=== PATIENT | female | born 1965 | race Caucasian/White ===

== ENCOUNTER 2016-06-21 17:54 | Emergency (ER) | payer BC ==
[~2016-06-21] VITALS: Ht 154.9 cm; Wt 118.3 kg
[2016-06-21 18:29] VITALS: BP 147/86; PULSE 109; TEMP 36.9; O2SAT 97; Ht 154.9 cm; Wt 118.3 kg
[2016-06-21 19:31] LABS: BASO % 0.2 %; BASO ABS # 0.02 K/uL (0-0.2); COMPLETE YES; EOS % 1.3 %; HEMATOCRIT 45.9 % (37-47); IG% 0.2 %; LYMPH % 23.7 %; LYMPH ABS # 2.06 K/uL (1.2-3.4); MEAN CELL VOLUME 92.7 fL (80-100); MEAN CORPUSCULAR HEMOGLOBIN 32.1 pg (25-34); MEAN CORPUSCULAR HGB CONC 34.6 g/dl (32-36); MONO % 8.4 %; NEUT % 66.2 %; PLATELET COUNT 347 K/uL (130-400); RED BLOOD COUNT 4.95 M/uL (4.2-5.4); WHITE BLOOD COUNT 8.69 K/uL (4.8-10.8)
[2016-06-21] MEDS ORDERED: GLC/500 PO (19:32)
[2016-06-21] MEDS ORDERED: LISI-787 PO (19:32)
[2016-06-21 19:49] LABS: BUN/CREATININE RATIO 18.7 (10-20); CALCIUM 8.6 mg/dl (8.5-10.1); CREATININE 0.83 mg/dl (0.60-1.20); POTASSIUM 3.9 mmol/L (3.5-5.1)
--- NOTE | 2016-06-21 20:50 | DIAGNOSTIC IMAGING REPORT ---
Venous Doppler left leg LEFT VENOUS DOPP LOWER EXT UNILAT CLINICAL HISTORY: calf pain eval for dv pain. Edema. TECHNIQUE: Venous Doppler COMPARISON STUDY: None FINDINGS: 1. No evidence for deep venous thrombosis. 2. Small focus of superficial thrombophlebitis posterior to the left knee at the popliteal fossa region IMPRESSION: 1. No evidence of deep venous thrombosis. 2. At the site of edematous change posterior to the knee is a small focus of superficial thrombophlebitis Electronically signed by: Misael Correa M.D. 06/21/2016 8:49 PM Dictated Date/Time: 06/21/2016 8:47 PM
[2016-06-21] MEDS ORDERED: DOXYCYCLINE HYCLATE 100 MG CAP PO STA (21:14)
[2016-06-21] MEDS ORDERED: DOXY100C2 PO (21:16)
--- NOTE | 2016-06-22 00:46 | EMERGENCY ROOM VISIT NOTE ---
History Report prepared by Cris: Dov Lim Under the Supervision of: Dr. Prem Keith M.D. First contact with patient: 18:59 Chief Complaint: LEG PAIN,LEG INJURY Stated Complaint: LEFT LEG PAIN,REDNESS BEHIND KNEE, SWELLING,HOT History of Present Illness The patient is a 50 year old female with a history of varicose veins who presents to the Emergency Room with complaints of persistent left leg pain since 1800 last night. The pain is localized to the back of the left thigh and is sharp in nature. She denies fevers, chest pain, shortness of breath, or vomiting. She denies any recent injuries. The patient notes increased redness and warmth to the painful area that started right after the onset of pain. The patient had an aspirin at 1830 last night. The patient is concerned that she may have a blood clots. She denies any personal or family history of blood clots. 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 The patient is past menopause. She does not take hormonal replacement therapy. The patient smokes one pack of cigarettes every week. She has not been on any recent long trips or periods of immobilization. The patient has a history of hypertension and diabetes. Source of History: patient Onset: 1800 last night Position: leg (left) Quality: sharp Timing: other (persistent) Associated Symptoms: No SOB, No chest pain, No fevers, No vomiting Review of Systems See HPI for pertinent positives & negatives. A total of 10 systems reviewed and were otherwise negative. Past Medical & Surgical Medical Problems: (1) Diabetes (2) HTN (hypertension) Family History Diabetes mellitus Social History Smoking Status: Current Some Day Smoker Current/Historical Medications Scheduled Doxycycline Hyclate (Vibramycin), 100 MG PO BID Lisinopril/Hctz (Zestoretic 20MG/12.5MG), 1 TAB PO DAILY Metformin Hcl (Glucophage), 500 MG PO TID Allergies Coded Allergies: Morphine (Unverified Allergy, Unknown, 06/21/16) Penicillins (Unverified Allergy, Unknown, 06/21/16) Physical Exam Vital Signs Date Time Temp Pulse Resp B/P Pulse Ox O2 Delivery O2 Flow Rate FiO2 06/21/16 18:29 36.9 109 18 147/86 97 Room Air Physical Exam Constitutional: Vital signs reviewed. Eyes: Pupils are equal round reactive to light. Conjunctiva are noninjected. ENT: Pharynx is clear without erythema or exudate. Mucous membranes are moist. Neck supple without meningeal signs. Respiratory: Clear to auscultation bilaterally. Breath sounds are equal bilaterally. Cardiovascular: Regular rate and rhythm. No rubs or gallops. GI: Soft, nondistended and nontender. Bowel sounds are present. Musculoskeletal: No peripheral edema. See below. Integumentary: No cyanosis. 8x10 cm area of erythema to the posterolateral upper left calf without abscess. There is increased warmth; normal distal pulses. Neurological: The patient is awake and alert. No focal deficits. Psychiatric: Normal affect. Medical Decision & Procedures ER Provider Diagnostic Interpretation: US results as stated below per my review and radiologist interpretation. Venous Doppler left leg LEFT VENOUS DOPP LOWER EXT UNILAT CLINICAL HISTORY: calf pain eval for dv pain. Edema. TECHNIQUE: Venous Doppler COMPARISON STUDY: None FINDINGS: 1. No evidence for deep venous thrombosis. 2. Small focus of superficial thrombophlebitis posterior to the left knee at the popliteal fossa region IMPRESSION: 1. No evidence of deep venous thrombosis. 2. At the site of edematous change posterior to the knee is a small focus of superficial thrombophlebitis Electronically signed by: Misael Correa M.D. 06/21/2016 8:49 PM Dictated Date/Time: 06/21/2016 8:47 PM Laboratory Results 06/21/16 19:20 Red Blood Count 4.95, Mean Corpuscular Volume 92.7, Mean Corpuscular Hemoglobin 32.1, Mean Corpuscular Hemoglobin Concent 34.6, Mean Platelet Volume 10.0, Neutrophils (%) (Auto) 66.2, Lymphocytes (%) (Auto) 23.7, Monocytes (%) (Auto) 8.4, Eosinophils (%) (Auto) 1.3, Basophils (%) (Auto) 0.2, Neutrophils # (Auto) 5.75, Lymphocytes # (Auto) 2.06, Monocytes # (Auto) 0.73, Eosinophils # (Auto) 0.11, Basophils # (Auto) 0.02 06/21/16 19:20 Test 06/21/16 19:20 White Blood Count 8.69 K/uL (4.8-10.8) Red Blood Count 4.95 M/uL (4.2-5.4) Hemoglobin 15.9 g/dL (12.0-16.0) Hematocrit 45.9 % (37-47) Mean Corpuscular Volume 92.7 fL (80-100) Mean Corpuscular Hemoglobin 32.1 pg (25-34) Mean Corpuscular Hemoglobin Concent 34.6 g/dl (32-36) Platelet Count 347 K/uL (130-400) Mean Platelet Volume 10.0 fL (7.4-10.4) Neutrophils (%) (Auto) 66.2 % Lymphocytes (%) (Auto) 23.7 % Monocytes (%) (Auto) 8.4 % Eosinophils (%) (Auto) 1.3 % Basophils (%) (Auto) 0.2 % Neutrophils # (Auto) 5.75 K/uL (1.4-6.5) Lymphocytes # (Auto) 2.06 K/uL (1.2-3.4) Monocytes # (Auto) 0.73 K/uL (0.11-0.59) Eosinophils # (Auto) 0.11 K/uL (0-0.5) Basophils # (Auto) 0.02 K/uL (0-0.2) RDW Standard Deviation 44.2 fL (36.4-46.3) RDW Coefficient of Variation 13.0 % (11.5-14.5) Immature Granulocyte % (Auto) 0.2 % Immature Granulocyte # (Auto) 0.02 K/uL (0.00-0.02) Anion Gap 9.0 mmol/L (3-11) Est Creatinine Clear Calc Drug Dose 97.3 ml/min Estimated GFR () 95.3 Estimated GFR (Non- 82.2 BUN/Creatinine Ratio 18.7 (10-20) Calcium Level 8.6 mg/dl (8.5-10.1) Laboratory results as reviewed by me. Medications Administered Medications (Trade) Dose Ordered Sig/Carlos Eduardo Route Start Time Stop Time Status Last Admin Dose Admin Doxycycline Hyclate (Vibramycin Cap) 100 mg NOW STAT PO 06/21/16 21:14 06/21/16 21:15 DC 06/21/16 21:28 100 MG ED Course 1900: The patient was evaluated in room C10. A complete history and physical exam was performed. 2111: Talked about the test results with her. She will follow up with her doctor in one week for a repeat ultrasound to look for propagation of the clot. 2113: Vibramycin 100 mg PO. Medical Decision This is a 50-year-old female who presents with leg pain. Differential diagnosis : Cellulitis, abscess, superficial thrombophlebitis, strain, Smith's cyst, DVT. I did perform a limited focused review of portions of the patient's old chart on the electronic medical record. The patient has had no recent pertinent visits to this hospital. I did evaluate the patient as noted above. IV access was established. I did order and review the patient's blood work as noted in the electronic medical record. Her white blood cell count is not elevated. I did order Doppler ultrasound of the left leg. I did review the images myself as well as the radiology report as described above. She has a small superficial thrombophlebitis but no DVT. I did discuss the test results with the patient. I did recommend close follow up with her physician and likely repeat ultrasound to make sure that she does not have propagation of the superficial clot. I did treat the patient with doxycycline. She was given return instructions as outlined below and a prescription for doxycycline. Impression Primary Impression: Cellulitis of left leg Additional Impression: Superficial thrombophlebitis of left leg Scribe Attestation The scribe's documentation has been prepared under my direct and personally reviewed by me in its entirety. I confirm that the note above accurately reflects all work, treatment, procedures, and medical decision making performed by me. Departure Information Dispostion Home / Self-Care Prescriptions Doxycycline Hyclate (VIBRAMYCIN) 100 Mg Cap 100 MG PO BID for 10 Days, #19 CAP Prov: Prem Keith M.D. 06/21/16 Referrals Kosta Mendoza, D.OReginaldo (PCP) Forms HOME CARE DOCUMENTATION FORM, IMPORTANT VISIT INFORMATION Patient Instructions Cellulitis - [facility], ED Phlebitis Superficial, My [facility] Additional Instructions You have been examined and treated today on an emergency basis only. This is not a substitute for, or an effort to provide, complete comprehensive medical care. It is impossible to recognize and treat all injuries or illnesses in a single emergency department visit. It is therefore important that you follow up closely with your physician. Call as soon as possible for an appointment. Have your doctor repeat your ultrasound in about 1-2 weeks to ensure no enlargement of your clot or propagation into your deep vein system. Return for worsening symptoms or if you develop fever, vomiting, chest pain, shortness of breath or any other concerning symptoms. Problem Qualifiers
== END 2016-06-21 21:57 | disposition home or self-care (01) ==
LOC: C.EDB 17:55 → C.EDC 21:57
DX: L03.116 Cellulitis of left lower limb (principal); I80.02 Phlebitis and thrombophlebitis of superficial vessels of left lower extremity; I10 Essential (primary) hypertension; E11.9 Type 2 diabetes mellitus without complications; F17.210 Nicotine dependence, cigarettes, uncomplicated; Z79.84 Long term (current) use of oral hypoglycemic drugs; Z79.899 Other long term (current) drug therapy; Z88.0 Allergy status to penicillin; Z88.5 Allergy status to narcotic agent; Z83.3 Family history of diabetes mellitus

== ENCOUNTER → 2016-06-25 | Outpatient (CLI) | payer BC ==
[~2016-06-25] MED LIST: DOXY100C2 PO; GLC/500 PO; LISI-787 PO
--- NOTE | 2016-06-25 11:57 | DIAGNOSTIC IMAGING REPORT ---
LEFT LOWER EXTREMITY VENOUS DOPPLER HISTORY: LT LEG PHLEBITIS, POSSIBLE CHANGE COMPARISON STUDY: Left leg venous Doppler 06/21/2016. FINDINGS: There is normal compressibility, flow, and augmentation within the left lower extremity deep venous system. No change in the superficial thrombosed veins within the popliteal region. IMPRESSION: No DVT within the left lower extremity. No change in the thrombosed superficial veins within the left popliteal region. Electronically signed by: Raul Hidalgo M.D. 06/25/2016 11:55 AM Dictated Date/Time: 06/25/2016 11:54 AM
== END | disposition home or self-care (01) ==
LOC: C.ULTRBC 11:09
PROVIDERS: ATTEND Internal Medicine
DX: I80.9 Phlebitis and thrombophlebitis of unspecified site (principal)

== ENCOUNTER → 2016-07-02 | Outpatient (CLI) | payer BC ==
--- NOTE | 2016-07-02 13:30 | DIAGNOSTIC IMAGING REPORT ---
ULTRASOUND LEFT VENOUS DOPP LOWER EXT UNILAT CLINICAL HISTORY: LEFT LEG SWELLING AND PAIN COMPARISON STUDY: No previous studies for comparison. FINDINGS: Real-time and color flow Doppler imaging were performed. Flow was seen within the femoral, popliteal and calf veins with no intraluminal thrombus demonstrated. The saphenous vein is patent. There are multiple superficial varicosities including thrombosed superficial varicosities at the level of the lateral knee upper calf and lower calf. IMPRESSION: 1. No evidence of DVT 2. Thrombosed superficial varicosities. Electronically signed by: Albaro Garcia M.D. 07/02/2016 1:29 PM Dictated Date/Time: 07/02/2016 1:28 PM
== END | disposition home or self-care (01) ==
LOC: C.ULTRBC 12:50
PROVIDERS: ATTEND Internal Medicine
DX: I80.02 Phlebitis and thrombophlebitis of superficial vessels of left lower extremity (principal)

== ENCOUNTER 2023-12-10 07:04 | Observation (INO) ==
[2023-12-10] MEDS: ONDANSETRON INJ 2 MG/ML 2 ML VIAL IV STA (07:29)
[2023-12-10] MEDS: HYDROmorphone INJ 0.5 MG/0.5 ML SYR IV STA ×3 (07:29→09:58)
[2023-12-10] MEDS: SODIUM CHLORIDE 0.9% 1,000 ML IV ONE (07:31)
--- NOTE | 2023-12-10 07:31 | Emergency Department Note ---
History of Present Illness General Chief complaint: Flank Pain Stated complaint: RIGHT SIDE PAIN Time Seen by Provider: 12/10/23 07:15 Source: patient, RN notes reviewed and old records reviewed (12/09/23-CT done yesterday for similar complaint) Mode of arrival: ambulatory Limitations: no limitations History of Present Illness Maximum Pain Intensity: 7 This patient is a 58-year-old female who comes in with severe flank pain. She seen here yesterday and had a negative workup. Her urinalysis was contaminated. She said she bent over in the shower and had severe pain again today. She took oxycodone and prednisone last night. She felt hot and sweaty at the time. She appears to be very uncomfortable at present denies chest pain shortness breath or pleurisy no trauma or overuse. No numbness or weakness. She describes as a burning she has had no rash. She is allergic to penicillin morphine but did well with Dilaudid yesterday Home Medications Medication Instructions Recorded Confirmed Type lisinopril 20 1 tab PO QAM 12/09/23 12/10/23 History mg-hydrochlorothiazide 25 mg tablet oxycodone 5 mg tablet 5 mg PO Q6H PRN pain #10 tabs 12/09/23 Rx prednisone 50 mg tablet 50 mg PO DAILY 5 days #5 tabs 12/09/23 Rx Allergies Allergy/AdvReac Type Severity Reaction Status Date / Time Penicillins Allergy Mild rash/swelli Verified 12/09/23 16:20 ng morphine Allergy Unknown Unknown Unverified 12/09/23 16:20 Past Med/Surg History Problem List (Updated 12/10/23 @ 14:03 by Ignacio Brandon MD) Abdominal pain (Acute) Acute right flank pain (Acute) Ambulatory dysfunction Hip pain Hyperglycemia (Acute) Elevated platelet count (Acute) Flank pain (Acute) Back pain Diabetes (Chronic) HTN (hypertension) (Chronic) Cellulitis of left leg (Acute) Superficial thrombophlebitis of left leg (Acute) Surgical History H/O hernia repair History of Family History Father Heart disease Social History Smoking Status: Current every day smoker Tobacco Type: Cigarettes Preferred Language: Yi Feels Safe at Home: Yes Review of Systems A total of 10 systems reviewed and were otherwise negative Physical Exam Vital Signs Vital Signs - 24 hr 12/10/23 07:06 12/10/23 07:30 12/10/23 07:45 Temperature 36.7 C Temperature Source Temporal Artery Scan Pulse Rate 104 H Pulse Rate [Apical] 83 74 Pulse Rate from SpO2 Sensor Respiratory Rate 22 16 19 Respiratory Effort / Characteristics Non-Labored Spontaneous Non-Labored Spontaneous Respiratory Depth Normal Normal Blood Pressure 172/67 H Blood Pressure [Left Arm] 113/83 115/73 Blood Pressure Mean 102 Blood Pressure Mean [Left Arm] 93 87 Pulse Oximetry 94 98 96 Oxygen Delivery Method Room Air Room Air Room Air Sepsis New/Unexplained Change in Mental Status No Sepsis Action Taken by Nursing No Action Required 12/10/23 08:24 12/10/23 09:30 12/10/23 09:36 Temperature Temperature Source Pulse Rate 74 73 68 Pulse Rate [Apical] Pulse Rate from SpO2 Sensor 74 68 Respiratory Rate 15 20 Respiratory Effort / Characteristics Respiratory Depth Blood Pressure 123/63 123/63 Blood Pressure [Left Arm] Blood Pressure Mean 83 83 Blood Pressure Mean [Left Arm] Pulse Oximetry 100 98 Oxygen Delivery Method Sepsis New/Unexplained Change in Mental Status Sepsis Action Taken by Nursing 12/10/23 10:03 12/10/23 11:00 Temperature Temperature Source Pulse Rate 66 67 Pulse Rate [Apical] Pulse Rate from SpO2 Sensor 65 Respiratory Rate 13 19 Respiratory Effort / Characteristics Respiratory Depth Blood Pressure 123/86 100/71 Blood Pressure [Left Arm] Blood Pressure Mean 98 76 Blood Pressure Mean [Left Arm] Pulse Oximetry 100 Oxygen Delivery Method Sepsis New/Unexplained Change in Mental Status Sepsis Action Taken by Nursing General: Well developed well nourished uncomfortable appearing middle-age female in no acute distress, breathing comfortably on room air. Normal speech HEENT: Normal cephalic atraumatic. Pupils are equal round and reactive to light. Extraocular movements are intact. Oropharynx is pink with moist mucous membranes. No swelling of the mouth lips or tongue. Neck: Supple with a midline trachea. No meningeal signs or stiffness, no JVD or bruits. No Stridor. Chest: Clear to auscultation bilaterally. No wheezes or rhonchi. No increased work of breathing. Heart: Regular rate and rhythm without murmurs or gallops. Abdomen: Soft nontender, nondistended without rebound guarding or rigidity. Extremities: No cyanosis clubbing or edema. No calf tenderness or assymetry Spine/Back. Non tender to palpation. Mildly tender in the left flank. No rash no redness or warmth Skin: Good turgor without rashes. Neurologic exam: Cranial nerves two through 12 are intact. Motor and sensation are intact and symmetrical throughout. Course Administered Medications Discontinued Medications Hydromorphone HCl (Hydromorphone Inj 0.5 Mg/0.5 Ml Syr) 0.5 mg IV NOW STA Stop: 12/10/23 07:25 Last Admin: 12/10/23 07:29 Dose: 0.5 mg Documented By: TATA Hydromorphone HCl (Hydromorphone Inj 0.5 Mg/0.5 Ml Syr) 0.5 mg IV NOW STA Stop: 12/10/23 07:44 Last Admin: 12/10/23 07:46 Dose: 0.5 mg Documented By: TATA Hydromorphone HCl (Hydromorphone Inj 0.5 Mg/0.5 Ml Syr) 0.5 mg IV NOW STA Stop: 12/10/23 09:55 Last Admin: 12/10/23 09:58 Dose: 0.5 mg Documented By: TATA Sodium Chloride (Nss) 1,000 mls @ 999 mls/hr IV .Q1H1M ONE Stop: 12/10/23 08:24 Last Infusion: 12/10/23 09:03 Dose: Infused Documented By: Admin: 12/10/23 07:31 Dose: 999 mls/hr Documented By: TATA Ioversol (Optiray 320 100ml) 93 ml IV ONCE ONE Stop: 12/10/23 09:26 Last Admin: 12/10/23 09:25 Dose: 93 ml Documented By: NIC Ketorolac Tromethamine (Ketorolac Tromethamine 15 Mg/Ml Vial) 10 mg IV NOW ONE Stop: 12/10/23 09:55 Last Admin: 12/10/23 09:57 Dose: 10 mg Documented By: TATA Ondansetron HCl (Ondansetron Inj 2 Mg/Ml 2 Ml Vial) 4 mg IV NOW STA Stop: 12/10/23 07:25 Last Admin: 12/10/23 07:29 Dose: 4 mg Documented By: TATA Medical Decision Making Differential Diagnosis Musculoskeletal, shingles, kidney stone, kidney infection, electrolyte or metabolic abnormality Medical Records Attestation: I reviewed the patient's medical records. Home Medications Current Medication List: was personally reviewed by me Laboratory Data Attestation: I reviewed the patient's lab results. 12/10/23 07:20 12/10/23 07:20 Lab Results 12/10/23 12/10/23 Range/Units 07:20 09:50 WBC 8.48 (4.8-10.8) K/ul RBC 5.24 (4.20-5.40) M/uL Hgb 16.4 H (12.0-16.0) g/dl Hct 48.9 H (37.0-47.0) % MCV 93.3 (80.0-100.0) fL MCH 31.3 (25.0-34.0) pg MCHC 33.5 (32.0-36.0) g/dL RDW Std Deviation 43.3 (36.4-46.3) fL RDW Coeff of [place] 12.7 (11.5-14.5) % Plt Count 377 (130-400) K/uL MPV 9.8 (9.4-12.4) fL Immature Gran % (Auto) 0.2 % Neut % (Auto) 58.6 % Lymph % (Auto) 28.1 % [place] % (Auto) 10.3 % Eos % (Auto) 2.2 % Baso % (Auto) 0.6 % Neut # (Auto) 4.97 (1.40-6.50) K/uL Lymph # (Auto) 2.38 (1.20-3.40) K/uL [place] # (Auto) 0.87 H (0.11-0.59) K/uL Eos # (Auto) 0.19 (0.00-0.50) K/uL Baso # (Auto) 0.05 (0.00-0.20) K/uL Immature Gran # (Auto) 0.02 (0.01-0.20) K/uL Sodium 139 (136-145) mmol/L Potassium 3.7 (3.5-5.1) mmol/L Chloride 102 (98-107) mmol/L Carbon Dioxide 28 (21-32) mmol/L Anion Gap 9 (3-11) BUN 14 (6-23) mg/dl Creatinine 0.81 (0.6-1.2) mg/dl Est Cr Clr Drug Dosing 87.5 ml/min Est GFR ( Amer) 92.8 ml/min Est GFR (Non-Af Amer) 80.1 ml/min BUN/Creatinine Ratio 17.3 (10-20) Glucose 129 H (70-99(Fasting)) mg/dl Calcium 9.4 (8.6-10.3) mg/dl Total Bilirubin 0.6 (0.2-1.0) mg/dl AST 19 (13-39) U/L ALT 17 (7-52) U/L Alkaline Phosphatase 87 (34-104) U/L Total Protein 7.3 (6.0-8.3) gm/dl Albumin 4.2 (3.4-5.0) gm/dl Globulin 3.1 (2.5-4.0) gm/dl Albumin/Globulin Ratio 1.4 (0.9-2) Lipase 29 (11-82) U/L Urine Color Yellow Urine Appearance Cloudy A (Clear) Urine pH 5.0 (4.5-7.5) Ur Specific [place] > 1.045 H (1.000-1.030) Urine Protein Trace H (Negative) Urine Glucose (UA) Negative (Negative) Urine Ketones Negative (Negative) Urine Blood Negative (Negative) Urine Nitrite Negative (Negative) Urine Bilirubin Negative (Negative) Urine Urobilinogen Negative (Negative) Ur Leukocyte Esterase Negative (Negative) Urine WBC (Auto) 0-5 (0-5) /hpf Urine RBC (Auto) 0-2 (0-2) /hpf U Hyaline Cast (Auto) 11-20 H (0-2) /lpf U Epithel Cells (Auto) 3-5 H (0-2) /hpf Urine Bacteria (Auto) None Seen (None Seen) Hyaline Casts Present A (None Presnt) /lpf Granular Casts Present A (None Prsent) /lpf Imaging Data Attestation: I personally reviewed and interpreted this imaging study as follows: My Impression: CT abdomen pelvisI do not see any obstructive uropathy or bowel obstruction Radiologist's Impression: Abdomen/Pelvis CT 12/10/23 08:22 CT SCAN OF THE ABDOMEN AND PELVIS WITH IV CONTRAST CLINICAL HISTORY: Right flank pain. COMPARISON STUDY: Abdominal CT dated 12/09/2023. TECHNIQUE: Following the IV administration of 93 cc of Optiray 320, CT scan of the abdomen and pelvis is performed from the lung bases to the proximal femora. Images are reviewed in the axial, sagittal, and coronal planes. IV contrast was administered without complication. A dose lowering technique was utilized adhering to the principles of ALARA. CT DOSE: 1811.73 mGy.cm FINDINGS: Lung bases: The heart is normal in size and without pericardial effusion. The lung bases are clear noting dependent atelectasis. Liver: The contrast-enhanced liver is mildly enlarged measuring over 18 cm in length. Attenuation is diffusely diminished indicating steatosis. There is no intrahepatic biliary ductal dilatation. The hepatic veins and portal veins are patent. Gallbladder: Unremarkable. Spleen: Normal in size and attenuation. Pancreas: Mildly atrophic and grossly unremarkable. Adrenal glands: Unremarkable. Kidneys: The contrast enhanced kidneys are normal in size and without hydronephrosis. The kidneys enhance symmetrically. Abdominal vasculature: The abdominal aorta is normal in course and caliber. Bowel: There is no bowel obstruction. There are scattered colonic diverticula without CT evidence of acute diverticulitis. The appendix is well-visualized and normal. Peritoneum: There is no intraperitoneal free air or abdominal ascites. There is evidence of previous ventral hernia repair. Lymphadenopathy: None. Pelvic viscera: The bladder is normal as visualized, and filled with excreted IV contrast. The uterus and adnexa are normal as imaged. Skeletal structures: No lytic or blastic lesions are seen. IMPRESSION: 1. No acute infectious or inflammatory findings are identified in the abdomen or pelvis. 2. Hepatic steatosis. 3. Additional findings as above. ACT 112: Negative or not required by law. Electronically signed by: Bipin Holt M.D. 12/10/2023 10:06 AM MDM Narrative This patient comes in described above. She has severe right flank and abdominal pain. She was here yesterday had a full workup. I reviewed that. IV access was established and she was hydrated with IV normal saline.she was given Dilaudid 0.5 mg IV and Zofran 4 mg IV. Multiple blood testing was obtained. She was reassessed frequently. She has no white count or fever to suggest infection. She has no significant electrolyte or metabolic abnormalities. She has nothing to suggest liver , gallbladder, or pancreas disease. I did review her CAT scan from yesterday which was unremarkable. She did receive additional IV dosages Dilaudid 0.5 mg with 2 more and also Toradol 10 mg IV her pain is definitely when she moves. She is concerned that she tore something because she felt a ripping when she bent over. I did repeat her CAT scan there is no evidence of hernia or any other abnormality. This could be related to her back and she may need MRI or further workup at this point she seems very uncomfortable with movement and I think needs to be admitted for pain management and further evaluation. I did discuss case with [facility] and he is going to see her and admit/observe her for further evaluation. Continuous cardiac monitoring call orders placed in EMR for continuous quality assurance monitor body: Pulm evaluation patient noted to be in normal sinus rhythm with a rate of 100 Impression & Plan Acute right flank pain, Abdominal pain Discharge Plan Visit Data Chief Complaint: Flank Pain Stated Complaint: RIGHT SIDE PAIN ED Provider: Ignaico Brandon Discharge Problem: Acute right flank pain, Abdominal pain Discharge Instructions Interventions: ED Discharge Assessment Last Done: 12/10/23 13:55 Discharge Problem: Abdominal pain Qualifiers: Abdominal location: right lower quadrant Qualified Code(s): R10.31 - Right lower quadrant pain
[2023-12-10 07:49] LABS: Basophils # (auto) 0.05 K/uL (0.00-0.20); Basophils % (auto) 0.6 %; Eosinophils # (auto) 0.19 K/uL (0.00-0.50); Eosinophils % (auto) 2.2 %; Hematocrit (blood only) 48.9 % (37.0-47.0); Hemoglobin 16.4 g/dl (12.0-16.0); Immature Granulocytes # (auto) 0.02 K/uL (0.01-0.20); Immature Granulocytes % (auto) 0.2 %; Lymphocytes # (auto) 2.38 K/uL (1.20-3.40); Lymphocytes % (auto) 28.1 %; Mean Corpuscular Hemoglobin 31.3 pg (25.0-34.0); Mean Corpuscular Hgb Conc 33.5 g/dL (32.0-36.0); Mean Corpuscular Volume 93.3 fL (80.0-100.0); Mean Platelet Volume 9.8 fL (9.4-12.4); Monocytes # (auto) 0.87 K/uL (0.11-0.59); Monocytes % (auto) 10.3 %; Neutrophils # (auto) 4.97 K/uL (1.40-6.50); Neutrophils % (auto) 58.6 %; Platelet Count 377 K/uL (130-400); RDW Coefficient of Variation 12.7 % (11.5-14.5); RDW Standard Deviation 43.3 fL (36.4-46.3); Red Blood Count 5.24 M/uL (4.20-5.40); White Blood Count 8.48 K/ul (4.8-10.8)
[2023-12-10 08:08] LABS: Albumin Globulin Ratio 1.4 (0.9-2); Albumin Level 4.2 gm/dl (3.4-5.0); BUN Creatinine Ratio 17.3 (10-20); Bilirubin,Total 0.6 mg/dl (0.2-1.0); Calcium 9.4 mg/dl (8.6-10.3); Creatinine Clr Calc Pharmacy 87.5 ml/min; Est GFR (African American) 92.8 ml/min; Est GFR (Non-African American) 80.1 ml/min; Globulin 3.1 gm/dl (2.5-4.0); Potassium 3.7 mmol/L (3.5-5.1); Total Protein 7.3 gm/dl (6.0-8.3)
[2023-12-10] MEDS: OPTIRAY 320 100ml IV ONE (09:25)
[2023-12-10] MEDS: KETOROLAC TROMETHAMINE 15 MG/ML VIAL IV ONE (09:57)
--- NOTE | 2023-12-10 10:08 | CT Scan Report ---
CT SCAN OF THE ABDOMEN AND PELVIS WITH IV CONTRAST CLINICAL HISTORY: Right flank pain. COMPARISON STUDY: Abdominal CT dated 12/09/2023. TECHNIQUE: Following the IV administration of 93 cc of Optiray 320, CT scan of the abdomen and pelvi s is performed from the lung bases to the proximal femora. Images are reviewed in the axial, sagittal , and coronal planes. IV contrast was administered without complication. A dose lowering technique wa s utilized adhering to the principles of ALARA. CT DOSE: 1811.73 mGy.cm FINDINGS: Lung bases: The heart is normal in size and without pericardial effusion. The lung bases are clear no ting dependent atelectasis. Liver: The contrast-enhanced liver is mildly enlarged measuring over 18 cm in length. Attenuation is diffusely diminished indicating steatosis. There is no intrahepatic biliary ductal dilatation. The he patic veins and portal veins are patent. Gallbladder: Unremarkable. Spleen: Normal in size and attenuation. Pancreas: Mildly atrophic and grossly unremarkable. Adrenal glands: Unremarkable. Kidneys: The contrast enhanced kidneys are normal in size and without hydronephrosis. The kidneys enh ance symmetrically. Abdominal vasculature: The abdominal aorta is normal in course and caliber. Bowel: There is no bowel obstruction. There are scattered colonic diverticula without CT evidence of acute diverticulitis. The appendix is well-visualized and normal. Peritoneum: There is no intraperitoneal free air or abdominal ascites. There is evidence of previous ventral hernia repair. Lymphadenopathy: None. Pelvic viscera: The bladder is normal as visualized, and filled with excreted IV contrast. The uterus and adnexa are normal as imaged. Skeletal structures: No lytic or blastic lesions are seen. IMPRESSION: 1. No acute infectious or inflammatory findings are identified in the abdomen or pelvis. 2. Hepatic steatosis. 3. Additional findings as above. ACT 112: Negative or not required by law. Electronically signed by: Bipin Holt M.D. 12/10/2023 10:06 AM
[2023-12-10 10:18] LABS: Appearance Urine Cloudy (Clear); Bacteria Urine Automated None Seen (None Seen); Bilirubin Urine Negative (Negative); Blood Urine Negative (Negative); Color Urine Yellow; Glucose Urine UA Negative (Negative); Granular Casts Urine Present /lpf (None Prsent); Hyaline Casts Urine Present /lpf (None Presnt); Ketones Urine Negative (Negative); Leukocyte Esterase Urine Negative (Negative); Nitrite Urine Negative (Negative); Protein Urine Trace (Negative); RBC Urine Automated 0-2 /hpf (0-2); Specific Gravity Urine > 1.045 (1.000-1.030); Urobilinogen Urine Negative (Negative); WBC Urine Automated 0-5 /hpf (0-5)
--- NOTE | 2023-12-10 11:26 | History & Physical Report ---
Date of Service December 10, 2023 Assessment & Plan (1) Hip pain: (2) Ambulatory dysfunction: Plan: 58-year-old female with hypertension, obesity, prediabetes, history of DVT presenting with progressive severe hip pain times few days. Severe, intractable hip pain Back pain Possible severe arthritis, rule out disc herniation, ligamentous tear Hip MRI Lumbar spine MRI Pain control with scheduled Tylenol 1 g 3 times daily, oxycodone 5 mg p.o. as needed, Dilaudid 0.5 mg IV every 4 hours as needed, Toradol 30 mg IV every 6 hours as needed, Flexeril 5 mg twice daily, Lidoderm patch, ice pack PT OT evaluation Depending on MRI results, may consult Ortho Right axillary lymphadenopathy Being managed by PCP Had a recent mammogram, ultrasound Close follow-up with PCP Hypertension Continue lisinopril/Eliquis thiazide Current smoker Nicotine patch daily Obesity Counseling History of DVT Takes aspirin 325 mg daily While admitted, aspirin 81 mg daily and Lovenox 40 mg SC every 12 hours Full code Disposition Lives with family at home History of Present Illness Chief Complaint: Severe hip pain times few days Primary Care Provider: Kosta Mendoza DO 58-year-old female with hypertension, obesity, prediabetes, history of DVT presenting with progressive severe hip pain times few days. Patient reports that last week she developed right hip pain which radiates to her right flank, and lower back region described as sharp, burning pain. No radiation to the right leg, no numbness, tingling sensation. Patient's symptoms progressed and became worse yesterday to the point that she could not get up from laying or sitting position, difficult to perform toilet activities, can get out of the car, or ambulate. Bending and Twisting her torso makes it worse,. She was seen at the ER yesterday. UA unremarkable, CT abdomen pelvis also unrevealing. She returned to the ER today due to worsening of pain. She was given multiple doses of Dilaudid and Toradol at the ER to control her symptoms. On exam, patient states pain is mild-moderate. No fevers or chills, nausea vomiting, abdominal pain, chest pain, shortness of breath, etc. Allergies Allergy/AdvReac Type Severity Reaction Status Date / Time Penicillins Allergy Mild rash/swelli Verified 12/09/23 16:20 ng morphine Allergy Unknown Unknown Unverified 12/09/23 16:20 Home Medications Medication Instructions Recorded Confirmed Type lisinopril 20 1 tab PO QAM 12/09/23 12/09/23 History mg-hydrochlorothiazide 25 mg tablet oxycodone 5 mg tablet 5 mg PO Q6H PRN pain #10 tabs 12/09/23 Rx prednisone 50 mg tablet 50 mg PO DAILY 5 days #5 tabs 12/09/23 Rx Past Med/Surg History Problem List (Updated 12/10/23 @ 11:29 by Shemar Serrano MD) Ambulatory dysfunction Hip pain Hyperglycemia (Acute) Elevated platelet count (Acute) Flank pain (Acute) Back pain Diabetes (Chronic) HTN (hypertension) (Chronic) Cellulitis of left leg (Acute) Superficial thrombophlebitis of left leg (Acute) Surgical History H/O hernia repair History of Family History Father Heart disease Social History Smoking Status: Current every day smoker Tobacco Type: Cigarettes Preferred Language: Sinhala Feels Safe at Home: Yes Review of Systems Review of Systems: all noted and negative except for above Physical Exam Physical Exam: General- oriented x 3, not in distress, speaks in sentences with no effort or accessory muscle use Head- atraumatic Eyes- PERRL, EOMI, anicteric ENT- oropharynx clear Neck- supple, no JVD, no adenopathy, no thyromegaly; carotids +2/2, no bruits appreciated Lungs- clear to auscultation bilaterally, no rales/wheezes Heart- normal rate, regular rhythm; no murmur, no gallop, no rub appreciated Abdomen- normal bowel sounds, nondistended, soft, nontender, no masses or hepatosplenomegaly No Bravo sign Positive mild tenderness right lower quadrant Extremities- no pretibial edema, no calf tenderness; peripheral pulses intact Positive tenderness on the right hip, lower back No erythema/warmth Neuro- alert, oriented x 3; CN 2-12 grossly intact; motor 5/5 bilaterally;sensation 100% on all extremities; no other gross focal neurologic deficits Skin- warm & dry Results & Data Results & Data Vital Signs (Past 12 Hours) Vital Signs Temp Pulse Pulse Resp BP BP Pulse Ox 12/10/23 11:00 67 19 100/71 12/10/23 10:03 66 13 123/86 100 12/10/23 09:36 68 20 123/63 98 12/10/23 09:30 73 15 123/63 100 12/10/23 08:24 74 12/10/23 07:45 74 19 115/73 96 12/10/23 07:30 83 16 113/83 98 12/10/23 07:06 36.7 C 104 H 22 172/67 H 94 O2 Del Method 12/10/23 11:00 12/10/23 10:03 12/10/23 09:36 12/10/23 09:30 12/10/23 08:24 12/10/23 07:45 Room Air 12/10/23 07:30 Room Air 12/10/23 07:06 Room Air all noted and reviewed including below
[2023-12-10] MEDS: NICOTINE 14 MG/24 HR PATCH TD SCH (14:29)
[2023-12-10] MEDS: ACETAMINOPHEN 500 MG TAB PO SCH (14:30)
[2023-12-10] MEDS: LIDOCAINE 5% 1 PATCH TD SCH (14:30)
[2023-12-10] MEDS: LISINOPRIL/HCTZ 20/25MG 1 TAB PO SCH (14:32)
--- NOTE | 2023-12-10 18:34 | Magnetic Resonance Report ---
MR hip RT wo con CLINICAL HISTORY: intractable hip pain TECHNIQUE: Multisequence, multiplanar images of the right hip were obtained without the administratio n of intravenous gadolinium. Comparison: Comparison is made to CT abdomen pelvis 12/10/2023 FINDINGS: The visualized pelvic bones demonstrate normal marrow signal without focal abnormality. The femoral h ead is without fracture, dislocation, or evidence of avascular necrosis. There are no findings to suggest iliopsoas or trochanteric bursitis and the capsular structures are f ree of tear. The iliopsoas, hamstring, and gluteus tendinous attachments are normal. There is no soft tissue mass or muscular atrophy. No joint effusion or abnormal fluid collections are present such as a paralabral cyst. The articular cartilage is intact with no focal osteochondral defects or intra articular bodies. The visualized portions of the intraperitoneal structures and pelvic sidewalls are normal. IMPRESSION: Normal MRI without evidence of acute injury. ACT 112: Negative or not required by law. Electronically signed by: Enoc Wade M.D. 12/10/2023 6:31 PM
--- NOTE | 2023-12-10 18:40 | Magnetic Resonance Report ---
MR lumbar spine wo con CLINICAL HISTORY: intractable back pain TECHNIQUE: Multiplanar sequences through the lumbar spine were obtained, without intravenous contrast . Comparison: Comparison is made to CT abdomen pelvis 12/10/2023 FINDINGS: The alignment is anatomical. L1-L2: Broad-based posterior disc bulge is seen with mild canal stenosis and no significant neurofora sulema stenosis. L2-L3: No significant abnormality. L3-L4: No significant abnormality. L4-L5: No significant abnormality. L5-S1: No significant abnormality. The spinal ligaments are intact, without evidence of disruption or abnormal signal intensity. The spi nal cord is normal in signal intensity and there is no evidence of cord contusion. There is no eviden ce of an extradural, intradural, extramedullary or intramedullary lesion. Visualized soft tissues are normal. IMPRESSION: No evidence of cord compression or significant neuroforaminal narrowing. ACT 112: Negative or not required by law. Electronically signed by: Enoc Wade M.D. 12/10/2023 6:37 PM
[2023-12-10] MEDS: HYDROmorphone INJ 0.5 MG/0.5 ML SYR IV PRN (20:05)
[2023-12-10] MEDS: CYCLOBENZAPRINE HCL 5 MG TAB PO SCH (20:27)
[2023-12-10] MEDS: ENOXAPARIN INJ 40 MG/0.4 ML SYR SQ SCH (20:27)
[2023-12-10] MEDS: KETOROLAC 30 MG/ML VIAL IV PRN (20:29)
[2023-12-10] MEDS ORDERED: PROMETHAZINE 12.5 MG/50.5 ML BAG IV PRN (22:10)
[2023-12-11 06:53] LABS: Basophils # (auto) 0.03 K/uL (0.00-0.20); Basophils % (auto) 0.5 %; Eosinophils # (auto) 0.16 K/uL (0.00-0.50); Eosinophils % (auto) 2.5 %; Hematocrit (blood only) 40.2 % (37.0-47.0); Hemoglobin 13.5 g/dl (12.0-16.0); Immature Granulocytes # (auto) 0.02 K/uL (0.01-0.20); Immature Granulocytes % (auto) 0.3 %; Lymphocytes # (auto) 2.47 K/uL (1.20-3.40); Lymphocytes % (auto) 38.9 %; Mean Corpuscular Hemoglobin 31.1 pg (25.0-34.0); Mean Corpuscular Hgb Conc 33.6 g/dL (32.0-36.0); Mean Corpuscular Volume 92.6 fL (80.0-100.0); Mean Platelet Volume 10.2 fL (9.4-12.4); Monocytes # (auto) 0.76 K/uL (0.11-0.59); Neutrophils # (auto) 2.91 K/uL (1.40-6.50); Neutrophils % (auto) 45.8 %; Platelet Count 316 K/uL (130-400); RDW Coefficient of Variation 12.6 % (11.5-14.5); Red Blood Count 4.34 M/uL (4.20-5.40); White Blood Count 6.35 K/ul (4.8-10.8)
[2023-12-11 07:32] LABS: Calcium 8.4 mg/dl (8.6-10.3); Creatinine Clr Calc Pharmacy 95.8 ml/min; Est GFR (African American) 103.5 ml/min; Est GFR (Non-African American) 89.3 ml/min
--- NOTE | 2023-12-11 09:06 | Electrocardiogram Report ---
Test Reason : Blood Pressure : */* mmHG Vent. Rate : 73 BPM Atrial Rate : 73 BPM P-R Int : 154 ms QRS Dur : 86 ms QT Int : 400 ms P-R-T Axes : 56 87 42 degrees QTcB Int : 440 ms Normal sinus rhythm Normal ECG When compared with ECG of 03-May-2005 22:25, No significant change Confirmed by Emmanuel Dave ([id number]) on 12/11/2023 9:06:06 AM Referred By: REFERRED SELF Confirmed By: Emmanuel Dave
--- NOTE | 2023-12-11 09:11 | Hospitalist Progress Note ---
Date of Service December 11, 2023 Assessment & Plan (1) Hip pain: (2) Ambulatory dysfunction: Plan: 58-year-old female with hypertension, obesity, prediabetes, history of DVT presenting with progressive severe hip pain for a few days. Severe, intractable hip pain Back pain Possible severe arthritis, rule out disc herniation, ligamentous tear Pt with CT abd/pelvis x 2 in chart from Dec 08 and Dec 09 with no noted cause of her pain Hip MRI unremarkable Lumbar spine MRI with "no evidence of cord compression or significant neuroforaminal narrowing." Pain control with scheduled Tylenol 1 g 3 times daily, oxycodone 5 mg p.o. as needed, Dilaudid 0.5 mg IV every 4 hours as needed, Toradol 30 mg IV every 6 hours as needed, Flexeril 5 mg twice daily, Lidoderm patch, ice pack PT OT evaluation Pain Management consulted, appreciate recs Orthopedics consulted appreciate recs -recommended General Surgery eval for possible abdominal source General surgery consulted, appreciate recs Continue pain control Right axillary lymphadenopathy Being managed by PCP Had a recent mammogram, ultrasound Close follow-up with PCP Hypertension Continue lisinopril/hydrochlorothiazide Current smoker Nicotine patch daily Obesity Counseling History of DVT Takes aspirin 325 mg daily While admitted, aspirin 81 mg daily and Lovenox 40 mg SC every 12 hours Diet: HH DVT prophylaxis: Lovenox SQ Dispo: pT/OT ordered for further recs. Recommending return home Admission and Anticipated Discharge Date Admission Date: December 10, 2023 Subjective pt was seen with and family member at bedside. States that she has been having the pain in the right hip area, notes that the pain is very tender to palpation. States that it radiates into the right groin. Notes it browne and hurts. Denies a rash in the area or Hx of intertrigo. tearful at times Review of Systems Review of Systems: All systems reviewed & are unremarkable except as noted in Subjective Physical Exam Physical Exam: General: Alert, oriented. No acute distress Skin: No noted rashes or bruises Psych: Tearful mood and affect HEENT: NC/AT CV: RRR Resp: Breath sounds clear bilaterally, no increased effort of breathing. Abdomen: Soft, nontender, nondistended. No guarding. Noted periumbilical firmness Extremities: No edema in lower extremities bilaterally. Results & Data Results & Data Vital Signs (Past 12 Hours) Vital Signs Temp Pulse Resp BP Pulse Ox O2 Del Method 12/11/23 07:35 36.8 C 78 16 129/75 91 Room Air 12/11/23 03:21 78 96 Room Air Diagnostic Findings Abdomen/Pelvis CT 12/10/23 08:22 CT SCAN OF THE ABDOMEN AND PELVIS WITH IV CONTRAST CLINICAL HISTORY: Right flank pain. COMPARISON STUDY: Abdominal CT dated 12/09/2023. TECHNIQUE: Following the IV administration of 93 cc of Optiray 320, CT scan of the abdomen and pelvis is performed from the lung bases to the proximal femora. Images are reviewed in the axial, sagittal, and coronal planes. IV contrast was administered without complication. A dose lowering technique was utilized adhering to the principles of ALARA. CT DOSE: 1811.73 mGy.cm FINDINGS: Lung bases: The heart is normal in size and without pericardial effusion. The lung bases are clear noting dependent atelectasis. Liver: The contrast-enhanced liver is mildly enlarged measuring over 18 cm in length. Attenuation is diffusely diminished indicating steatosis. There is no intrahepatic biliary ductal dilatation. The hepatic veins and portal veins are patent. Gallbladder: Unremarkable. Spleen: Normal in size and attenuation. Pancreas: Mildly atrophic and grossly unremarkable. Adrenal glands: Unremarkable. Kidneys: The contrast enhanced kidneys are normal in size and without hydronephrosis. The kidneys enhance symmetrically. Abdominal vasculature: The abdominal aorta is normal in course and caliber. Bowel: There is no bowel obstruction. There are scattered colonic diverticula without CT evidence of acute diverticulitis. The appendix is well-visualized and normal. Peritoneum: There is no intraperitoneal free air or abdominal ascites. There is evidence of previous ventral hernia repair. Lymphadenopathy: None. Pelvic viscera: The bladder is normal as visualized, and filled with excreted IV contrast. The uterus and adnexa are normal as imaged. Skeletal structures: No lytic or blastic lesions are seen. IMPRESSION: 1. No acute infectious or inflammatory findings are identified in the abdomen or pelvis. 2. Hepatic steatosis. 3. Additional findings as above. ACT 112: Negative or not required by law. Electronically signed by: Bipin Holt M.D. 12/10/2023 10:06 AM Hip MRI 12/10/23 11:20 MR hip RT wo con CLINICAL HISTORY: intractable hip pain TECHNIQUE: Multisequence, multiplanar images of the right hip were obtained without the administration of intravenous gadolinium. Comparison: Comparison is made to CT abdomen pelvis 12/10/2023 FINDINGS: The visualized pelvic bones demonstrate normal marrow signal without focal abnormality. The femoral head is without fracture, dislocation, or evidence of avascular necrosis. There are no findings to suggest iliopsoas or trochanteric bursitis and the capsular structures are free of tear. The iliopsoas, hamstring, and gluteus tendinous attachments are normal. There is no soft tissue mass or muscular atrophy. No joint effusion or abnormal fluid collections are present such as a paralabral cyst. The articular cartilage is intact with no focal osteochondral defects or intra articular bodies. The visualized portions of the intraperitoneal structures and pelvic sidewalls are normal. IMPRESSION: Normal MRI without evidence of acute injury. ACT 112: Negative or not required by law. Electronically signed by: Enoc Wade M.D. 12/10/2023 6:31 PM Lumbar Spine MRI 12/10/23 11:20 MR lumbar spine wo con CLINICAL HISTORY: intractable back pain TECHNIQUE: Multiplanar sequences through the lumbar spine were obtained, without intravenous contrast. Comparison: Comparison is made to CT abdomen pelvis 12/10/2023 FINDINGS: The alignment is anatomical. L1-L2: Broad-based posterior disc bulge is seen with mild canal stenosis and no significant neuroforaminal stenosis. L2-L3: No significant abnormality. L3-L4: No significant abnormality. L4-L5: No significant abnormality. L5-S1: No significant abnormality. The spinal ligaments are intact, without evidence of disruption or abnormal signal intensity. The spinal cord is normal in signal intensity and there is no evidence of cord contusion. There is no evidence of an extradural, intradural, extramedullary or intramedullary lesion. Visualized soft tissues are normal. IMPRESSION: No evidence of cord compression or significant neuroforaminal narrowing. ACT 112: Negative or not required by law. Electronically signed by: Enoc Wade M.D. 12/10/2023 6:37 PM
--- NOTE | 2023-12-11 15:12 | Orthopedic Consultation ---
Date of Service December 11, 2023 Assessment & Plan (1) Acute right flank pain: There is no evidence of a hip etiology contributing to her presenting complaint and exam findings. There is certainly no bursitis presentation based on my history and exam today, in addition to the normal MRI. It seems to be more of an abdominal issue. Consider more imaging of this region or a consultation with a general surgeon. History of Present Illness Reason for Consultation: Right flank pain Requesting Physician: . Attending Physician: Sybil Blount MD 58-year-old female seen twice recently for right flank pain. She said it developed insidiously. She could not recall any particular injuries. Says she has had some abdominal and flank pain before from adhesions and scarring and mass from previous surgeries. She cannot recall any previous symptoms about her right hip. Pain is located just above her belt line and radiates towards her groin mostly in her pannus. She was seen today ambulating and standing with occupational therapy. No pain really when she walked today. Allergies Allergy/AdvReac Type Severity Reaction Status Date / Time Penicillins Allergy Mild rash/swelli Verified 12/09/23 16:20 ng morphine Allergy Unknown Unknown Unverified 12/09/23 16:20 Home Medications Medication Instructions Recorded Confirmed Type lisinopril 20 1 tab PO QAM 12/09/23 12/10/23 History mg-hydrochlorothiazide 25 mg tablet oxycodone 5 mg tablet 5 mg PO Q6H PRN pain #10 tabs 12/09/23 Rx prednisone 50 mg tablet 50 mg PO DAILY 5 days #5 tabs 12/09/23 Rx Past Med/Surg History Problem List Abdominal pain (Acute) Acute right flank pain (Acute) Ambulatory dysfunction Hip pain Hyperglycemia (Acute) Elevated platelet count (Acute) Flank pain (Acute) Back pain Diabetes (Chronic) HTN (hypertension) (Chronic) Cellulitis of left leg (Acute) Superficial thrombophlebitis of left leg (Acute) Surgical History H/O hernia repair History of Family History Father Heart disease Social History Smoking Status: Current every day smoker Tobacco Type: Cigarettes Hx Alcohol Use: No Hx Substance Use: No Preferred Language: [place] Enrollment Nurse Required: No Beliefs That Will Affect Care: None Current Living Situation: Spouse and Family Current Living Situation Comment: Niece and pt's Feels Safe at Home: Yes Safety Concerns: Feels Safe At This Time Review of Systems All systems reviewed & are unremarkable except as noted in HPI & below. Physical Exam Right hip: She was standing when I arrived. OT was in the room. She was able to walk several steps [id number] without indication of discomfort. She had no evidence of Trendelenburg gait. She can stand on either foot without loss of balance nor hip drop. On palpation she was nontender over the greater trochanter in the standing position. No tenderness over the gluteal region. She then was able to get into bed under her own accord and slide up the bed driving her heels into it. No indication of pain about the hip. On logroll, there is no discomfort. She is able to perform straight leg easily with only mild abdominal discomfort. Negative Stinchfield. On lateral decubitus exam, she is nontender about the greater trochanter. The ileum has no tenderness. There was tenderness on her flank just above the ileum and in the pannus that overlies her groin. More tender over the abdomen and north of the inguinal region then about the hip. Constitutional WD/WN, vitals as above no acute distress and not intoxicated appearing Respiratory normal respiratory effort; no labored breathing Cardiovascular Extremities: normal capillary refill Results & Data Results & Data Laboratory Results . Diagnostic Findings MRI of the pelvis and lumbar spine were both reviewed with regard to this orthopedic etiologies. The peritrochanteric region is entirely quiet. I agree with the radiologist. There is no evidence of bursitis, gluteal tendinopathy, nor hip arthritis. PG Care Time/CCT Total # of Minutes Spent Total Time Spent with Patient: Total time spent is greater than 50% in coordination of care (as documented) at patient's floor/unit and/or counseling patient: Coding Level of Care Code 33565 IN/OBS CONSULT LVL 4,60M Diagnoses Acute right flank pain R10.9
--- NOTE | 2023-12-11 20:21 | Surgery Consultation ---
Date of Consultation December 11, 2023 Assessment & Plan (1) Acute right flank pain: (2) Ambulatory dysfunction: Plan 58-year-old woman presents with right flank pain with some radiation towards the right groin. Exam and CT scan are negative for any intra-abdominal pathology such as hernia, appendicitis, bowel obstruction, cholecystitis. Unclear etiology of her pain. No general surgical intervention is required. MRI of lumbar spine and hip were normal, orthopedics consulted. Possible musculoskeletal issue. Once again, no general surgical indications. We will sign off for now. Please call with any questions or concerns. History of Present Illness Reason for Consultation: right flank pain radiating to groin Requesting Physician: Sybil Blount MD Attending Physician: Sybil Blount MD History of Present Illness 58-year-old woman presents with severe pain in her right flank and hip when she moves in certain ways and squats. She has had pain here for over 2 weeks but in the last 2 days it has become unbearable. She states that she screams when the pain happens. She states that the pain radiates from the right flank and hip down towards the groin. She has had a prior umbilical and hernia repair. She denies fevers or chills. She denies nausea or vomiting. She is eating a normal diet. A CT scan of her abdomen and pelvis was negative for any hernia. Appendix and gallbladder were normal. No bowel obstruction noted. MRI of the right hip and lumbar spine were normal. Allergies Allergy/AdvReac Type Severity Reaction Status Date / Time Penicillins Allergy Mild rash/swelli Verified 12/09/23 16:20 ng morphine Allergy Unknown Unknown Unverified 12/09/23 16:20 Home Medications Medication Instructions Recorded Confirmed Type lisinopril 20 1 tab PO QAM 12/09/23 12/10/23 History mg-hydrochlorothiazide 25 mg tablet oxycodone 5 mg tablet 5 mg PO Q6H PRN pain #10 tabs 12/09/23 Rx prednisone 50 mg tablet 50 mg PO DAILY 5 days #5 tabs 12/09/23 Rx Patient History Surgical History H/O hernia repair History of Family History Father Heart disease Social History Smoking Status: Current every day smoker Tobacco Type: Cigarettes Hx Alcohol Use: No Hx Substance Use: No Preferred Language: Welsh Legal Document Assistant Required: No Beliefs That Will Affect Care: None Current Living Situation: Spouse and Family Current Living Situation Comment: Niece and pt's Feels Safe at Home: Yes Safety Concerns: Feels Safe At This Time Review of Systems Review of Systems: All systems reviewed & are unremarkable except as noted in HPI & below Physical Exam Constitutional: WD/WN, vitals as above Eyes: PERRL, conjunctivae normal, anicteric sclerae Neck: trachea midline, no thyromegaly Respiratory: normal respiratory effort; no respiratory distress and no labored breathing Cardiovascular: Rate/Rhythm: regular rate and regular rhythm Gastrointestinal (Abdomen): Inspection/Auscultation: abdomen normal to inspection; abdomen not distended Percussion/Palpation: abdomen soft; abdomen nontender, no guarding and abdomen not rigid Skin: no rashes, warm and dry Psychiatric: A+Ox3, euthymic affect Results & Data Vital Signs (Past 12 Hours) Vital Signs Temp Pulse Resp BP BP Pulse Ox O2 Del Method 12/11/23 16:12 75 16 106/72 94 Room Air 12/11/23 15:16 36.7 C 78 16 99/66 L 91 Room Air Laboratory Results 12/11/23 Range/Units 05:44 WBC 6.35 (4.8-10.8) K/ul RBC 4.34 (4.20-5.40) M/uL Hgb 13.5 D (12.0-16.0) g/dl Hct 40.2 (37.0-47.0) % MCV 92.6 (80.0-100.0) fL MCH 31.1 (25.0-34.0) pg MCHC 33.6 (32.0-36.0) g/dL RDW Std Deviation 43.0 (36.4-46.3) fL RDW Coeff of [place]an 12.6 (11.5-14.5) % Plt Count 316 (130-400) K/uL MPV 10.2 (9.4-12.4) fL Immature Gran % (Auto) 0.3 % Neut % (Auto) 45.8 % Lymph % (Auto) 38.9 % [place] % (Auto) 12.0 % Eos % (Auto) 2.5 % Baso % (Auto) 0.5 % Neut # (Auto) 2.91 (1.40-6.50) K/uL Lymph # (Auto) 2.47 (1.20-3.40) K/uL [place] # (Auto) 0.76 H (0.11-0.59) K/uL Eos # (Auto) 0.16 (0.00-0.50) K/uL Baso # (Auto) 0.03 (0.00-0.20) K/uL Immature Gran # (Auto) 0.02 (0.01-0.20) K/uL Sodium 138 (136-145) mmol/L Potassium 4.0 (3.5-5.1) mmol/L Chloride 105 (98-107) mmol/L Carbon Dioxide 26 (21-32) mmol/L Anion Gap 7 (3-11) BUN 20 (6-23) mg/dl Creatinine 0.74 (0.6-1.2) mg/dl Est Cr Clr Drug Dosing 95.8 ml/min Est GFR ( Amer) 103.5 ml/min Est GFR (Non-Af Amer) 89.3 ml/min BUN/Creatinine Ratio 27.0 H (10-20) Glucose 89 (70-99(Fasting)) mg/dl Calcium 8.4 L (8.6-10.3) mg/dl Diagnostic Findings CT SCAN OF THE ABDOMEN AND PELVIS WITH IV CONTRAST CLINICAL HISTORY: Right flank pain. COMPARISON STUDY: Abdominal CT dated 12/09/2023. TECHNIQUE: Following the IV administration of 93 cc of Optiray 320, CT scan of the abdomen and pelvis is performed from the lung bases to the proximal femora. Images are reviewed in the axial, sagittal, and coronal planes. IV contrast was administered without complication. A dose lowering technique was utilized adhering to the principles of ALARA. CT DOSE: 1811.73 mGy.cm FINDINGS: Lung bases: The heart is normal in size and without pericardial effusion. The lung bases are clear noting dependent atelectasis. Liver: The contrast-enhanced liver is mildly enlarged measuring over 18 cm in length. Attenuation is diffusely diminished indicating steatosis. There is no intrahepatic biliary ductal dilatation. The hepatic veins and portal veins are patent. Gallbladder: Unremarkable. Spleen: Normal in size and attenuation. Pancreas: Mildly atrophic and grossly unremarkable. Adrenal glands: Unremarkable. Kidneys: The contrast enhanced kidneys are normal in size and without hydronephrosis. The kidneys enhance symmetrically. Abdominal vasculature: The abdominal aorta is normal in course and caliber. Bowel: There is no bowel obstruction. There are scattered colonic diverticula without CT evidence of acute diverticulitis. The appendix is well-visualized and normal. Peritoneum: There is no intraperitoneal free air or abdominal ascites. There is evidence of previous ventral hernia repair. Lymphadenopathy: None. Pelvic viscera: The bladder is normal as visualized, and filled with excreted IV contrast. The uterus and adnexa are normal as imaged. Skeletal structures: No lytic or blastic lesions are seen. IMPRESSION: 1. No acute infectious or inflammatory findings are identified in the abdomen or pelvis. 2. Hepatic steatosis. 3. Additional findings as above. ACT 112: Negative or not required by law. Electronically signed by: Bipin Holt M.D. 12/10/2023 10:06 AM
[2023-12-11 20:51] VITALS: O2SAT 93
[2023-12-12 07:22] LABS: Hematocrit (blood only) 41.1 % (37.0-47.0); Mean Corpuscular Hemoglobin 31.3 pg (25.0-34.0); Mean Corpuscular Hgb Conc 34.1 g/dL (32.0-36.0); Mean Corpuscular Volume 91.7 fL (80.0-100.0); Mean Platelet Volume 10.1 fL (9.4-12.4); Platelet Count 311 K/uL (130-400); RDW Coefficient of Variation 12.3 % (11.5-14.5); RDW Standard Deviation 41.6 fL (36.4-46.3); Red Blood Count 4.48 M/uL (4.20-5.40); White Blood Count 5.51 K/ul (4.8-10.8)
[2023-12-12 07:32] LABS: Calcium 8.6 mg/dl (8.6-10.3); Creatinine Clr Calc Pharmacy 118.2 ml/min; Est GFR (African American) 116.4 ml/min; Est GFR (Non-African American) 100.5 ml/min; Potassium 3.6 mmol/L (3.5-5.1)
[2023-12-12 07:39] VITALS: BP 130/82; PULSE 77; RESP 16; TEMP 98.2
[2023-12-12] MEDS: oxyCODONE HCL IR 5 MG TAB (IMMEDIATE RELEASE) PO PRN (09:27)
[2023-12-12] MEDS ORDERED: MAGNESIUM HYDROXIDE SUSP 30 ML UDC PO PRN (09:56)
--- NOTE | 2023-12-12 10:55 | Discharge Summary ---
Discharge Summary Date of Service December 12, 2023 Principal Dx & Hospital Course #1 = Principal Diagnosis (1) Hip pain: (2) Ambulatory dysfunction: Plan 58-year-old female with hypertension, obesity, prediabetes, history of DVT p resenting with progressive severe hip pain for a few days. Severe, intractable R hip/flank/groin pain Back pain Pt with CT abd/pelvis x 2 in chart from Dec 08 and Dec 09 with no noted cause of her pain, no noted kidney stones UA without infection Hip MRI unremarkable Lumbar spine MRI with "no evidence of cord compression or significant neuroforaminal narrowing." PT/OT evaluation- recommending stable for discharge home Orthopedics consulted, stated/recommended the following: "Acute right flank pain: There is no evidence of a hip etiology contributing to her presenting complaint and exam findings. There is certainly no bursitis presentation based on my history and exam today, in addition to the normal MRI. It seems to be more of an abdominal issue. Consider more imaging of this region or a consultation with a general surgeon." General surgery consulted, recommended/stated the following: "Acute right flank pain: Ambulatory dysfunction: "58-year-old woman presents with right flank pain with some radiation towards the right groin. Exam and CT scan are negative for any intra-abdominal pathology such as hernia, appendicitis, bowel obstruction, cholecystitis. Unclear etiology of her pain. No general surgical intervention is required. MRI of lumbar spine and hip were normal, orthopedics consulted. Possible musculoskeletal issue. Once again, no general surgical indications. We will sign off for now. Please call with any questions or concerns." Pain was controlled with scheduled Tylenol 1 g 3 times daily, oxycodone 5 mg p.o. as needed, Dilaudid 0.5 mg IV every 4 hours as needed, Toradol 30 mg IV every 6 hours as needed, Flexeril 5 mg twice daily, Lidoderm patch, ice pack. Discharged with instructions to continue with home oxycodone prescription from 12/08 for severe pain and home prednisone prescription from the same date scheduled, they were not previously started. Also prescribed Flexeril 5mg TID as well as Lidocaine patches. Advised use of tylenol 1000mg TID scheduled. Encourage PT/OT after discharge, consider pain management consultation. Close PCP follow up. Pt requesting work excuse. Right axillary lymphadenopathy Being managed by PCP Had a recent mammogram, ultrasound Close follow-up with PCP Hypertension Continue lisinopril/hydrochlorothiazide Current smoker Nicotine patch daily Obesity Counseling History of DVT Takes aspirin 325 mg daily While admitted, aspirin 81 mg daily and Lovenox 40 mg SC every 12 hours Resume home regimen on discharge Notes For Next Care Provider Please ensure follow up of the right hip/flank/groin pain Medication Changes From Visit Lidocaine patch Flexeril 5mg TID Admission HPI Per Admitting Provider 58-year-old female with hypertension, obesity, prediabetes, history of DVT presenting with progressive severe hip pain times few days. Patient reports that last week she developed right hip pain which radiates to her right flank, and lower back region described as sharp, burning pain. No radiation to the right leg, no numbness, tingling sensation. Patient's symptoms progressed and became worse yesterday to the point that she could not get up from laying or sitting position, difficult to perform toilet activities, can get out of the car, or ambulate. Bending and Twisting her torso makes it worse,. She was seen at the ER yesterday. UA unremarkable, CT abdomen pelvis also unrevealing. She returned to the ER today due to worsening of pain. She was given multiple doses of Dilaudid and Toradol at the ER to control her symptoms. On exam, patient states pain is mild-moderate. No fevers or chills, nausea vomiting, abdominal pain, chest pain, shortness of breath, etc. Admission Exam Per Admitting Provider General- oriented x 3, not in distress, speaks in sentences with no effort or accessory muscle use Head- atraumatic Eyes- PERRL, EOMI, anicteric ENT- oropharynx clear Neck- supple, no JVD, no adenopathy, no thyromegaly; carotids +2/2, no bruits appreciated Lungs- clear to auscultation bilaterally, no rales/wheezes Heart- normal rate, regular rhythm; no murmur, no gallop, no rub appreciated Abdomen- normal bowel sounds, nondistended, soft, nontender, no masses or hepatosplenomegaly No Bravo sign Positive mild tenderness right lower quadrant Extremities- no pretibial edema, no calf tenderness; peripheral pulses intact Positive tenderness on the right hip, lower back No erythema/warmth Neuro- alert, oriented x 3; CN 2-12 grossly intact; motor 5/5 bi laterally;sensation 100% on all extremities; no other gross focal neurologic deficits Skin- warm & dry Discharge Exam General: Alert, oriented. No acute distress Skin: No noted rashes or bruises Psych: Tearful mood and affect HEENT: NC/AT CV: RRR Resp: Breath sounds clear bilaterally, no increased effort of breathing. Abdomen: Soft, nontender, nondistended. No guarding. Noted periumbilical firmness Extremities: No edema in lower extremities bilaterally. Updated Medication List Medication Instructions Recorded Confirmed Type lisinopril 20 1 tab PO QAM 12/09/23 12/10/23 History mg-hydrochlorothiazide 25 mg tablet oxycodone 5 mg tablet 5 mg PO Q6H PRN pain #10 tabs 12/09/23 Rx prednisone 50 mg tablet 50 mg PO DAILY 5 days #5 tabs 12/09/23 Rx cyclobenzaprine 5 mg tablet 5 mg PO TID #30 tabs 12/12/23 Rx lidocaine 5 % topical patch 1 patch transdermal QAM #30 ea 12/12/23 Rx Hospital Stay Data Consultations 12/10/23 10:26 ED Decision to Admit Stat 12/11/23 09:12 Consult Pain Management Routine 12/11/23 12:12 Consult Orthopedic Surgery Routine 12/11/23 16:51 Consult General Surgery Routine Diagnostic Imagining Performed CT abd pelvis IV con only CLINICAL HISTORY: r abd and flank pain TECHNIQUE: Helical axial images of the abdomen and pelvis were obtained and displayed. Automated dose lowering techniques and/or adjustment according to patient size were utilized for this exam. This exam was performed with intravenous contrast. CT DOSE: 1352.6 mGy.cm COMPARISON: Comparison is made to CT abdomen pelvis 08/03/2021 FINDINGS: Lower chest: No acute abnormality. Liver: Unremarkable. No focal lesions are seen. Gallbladder and biliary tree: No calcified gallstones. Normal caliber wall. No intra- or extrahepatic biliary ductal dilation. Pancreas: Unremarkable, no focal lesions. Spleen: Unremarkable. Adrenals: Unremarkable. Kidneys and ureters: Unremarkable. Bladder: Limited evaluation due to underdistention. Reproductive organs: Unremarkable. Bowel: Diverticulosis is seen without diverticulitis. The appendix is normal. Lymph nodes Retroperitoneal: Unremarkable. Pelvic: Unremarkable. Mesenteric: Unremarkable. Peritoneum: Normal. Vessels: Unremarkable. Abdominal wall: Postsurgical changes of umbilical hernia repair noted. Bones: Degenerative changes in the visualized spine. IMPRESSION: 1. No acute abnormality, in particular the appendix is normal and there is no evidence of obstructive stone. 2. Diverticulosis without diverticulitis. ACT 112: Negative or not required by law. Electronically signed by: Enoc Wade M.D. 12/09/2023 3:55 PM Dictated: 12/09/23 1550 Transcribed: 12/09/23 1550 12/10/23 08:22 CT abd pelvis IV con only Stat 12/10/23 11:20 MRI Hip [MR hip RT wo con] Routine MRI Lumbar Spine [MR lumbar spine wo con] Routine Abdomen/Pelvis CT 12/10/23 08:22 CT SCAN OF THE ABDOMEN AND PELVIS WITH IV CONTRAST CLINICAL HISTORY: Right flank pain. COMPARISON STUDY: Abdominal CT dated 12/09/2023. TECHNIQUE: Following the IV administration of 93 cc of Optiray 320, CT scan of the abdomen and pelvis is performed from the lung bases to the proximal femora. Images are reviewed in the axial, sagittal, and coronal planes. IV contrast was administered without complication. A dose lowering technique was utilized adhering to the principles of ALARA. CT DOSE: 1811.73 mGy.cm FINDINGS: Lung bases: The heart is normal in size and without pericardial effusion. The lung bases are clear noting dependent atelectasis. Liver: The contrast-enhanced liver is mildly enlarged measuring over 18 cm in length. Attenuation is diffusely diminished indicating steatosis. There is no intrahepatic biliary ductal dilatation. The hepatic veins and portal veins are patent. Gallbladder: Unremarkable. Spleen: Normal in size and attenuation. Pancreas: Mildly atrophic and grossly unremarkable. Adrenal glands: Unremarkable. Kidneys: The contrast enhanced kidneys are normal in size and without hydronephrosis. The kidneys enhance symmetrically. Abdominal vasculature: The abdominal aorta is normal in course and caliber. Bowel: There is no bowel obstruction. There are scattered colonic diverticula without CT evidence of acute diverticulitis. The appendix is well-visualized and normal. Peritoneum: There is no intraperitoneal free air or abdominal ascites. There is evidence of previous ventral hernia repair. Lymphadenopathy: None. Pelvic viscera: The bladder is normal as visualized, and filled with excreted IV contrast. The uterus and adnexa are normal as imaged. Skeletal structures: No lytic or blastic lesions are seen. IMPRESSION: 1. No acute infectious or inflammatory findings are identified in the abdomen or pelvis. 2. Hepatic steatosis. 3. Additional findings as above. ACT 112: Negative or not required by law. Electronically signed by: Bipin Holt M.D. 12/10/2023 10:06 AM Hip MRI 12/10/23 11:20 MR hip RT wo con CLINICAL HISTORY: intractable hip pain TECHNIQUE: Multisequence, multiplanar images of the right hip were obtained without the administration of intravenous gadolinium. Comparison: Comparison is made to CT abdomen pelvis 12/10/2023 FINDINGS: The visualized pelvic bones demonstrate normal marrow signal without focal abnormality. The femoral head is without fracture, dislocation, or evidence of avascular necrosis. There are no findings to suggest iliopsoas or trochanteric bursitis and the capsular structures are free of tear. The iliopsoas, hamstring, and gluteus tendinous attachments are normal. There is no soft tissue mass or muscular atrophy. No joint effusion or abnormal fluid collections are present such as a paralabral cyst. The articular cartilage is intact with no focal osteochondral defects or intra articular bodies. The visualized portions of the intraperitoneal structures and pelvic sidewalls are normal. IMPRESSION: Normal MRI without evidence of acute injury. ACT 112: Negative or not required by law. Electronically signed by: Enoc Wade M.D. 12/10/2023 6:31 PM Lumbar Spine MRI 12/10/23 11:20 MR lumbar spine wo con CLINICAL HISTORY: intractable back pain TECHNIQUE: Multiplanar sequences through the lumbar spine were obtained, without intravenous contrast. Comparison: Comparison is made to CT abdomen pelvis 12/10/2023 FINDINGS: The alignment is anatomical. L1-L2: Broad-based posterior disc bulge is seen with mild canal stenosis and no significant neuroforaminal stenosis. L2-L3: No significant abnormality. L3-L4: No significant abnormality. L4-L5: No significant abnormality. L5-S1: No significant abnormality. The spinal ligaments are intact, without evidence of disruption or abnormal signal intensity. The spinal cord is normal in signal intensity and there is no evidence of cord contusion. There is no evidence of an extradural, intradural, extramedullary or intramedullary lesion. Visualized soft tissues are normal. IMPRESSION: No evidence of cord compression or significant neuroforaminal narrowing. ACT 112: Negative or not required by law. Electronically signed by: Enoc Wade M.D. 12/10/2023 6:37 PM Discharge Instructions Given to Patient (Per Discharging Provider) Slava Lewis were admitted with intractable right sided pain. The CT scans from 12/09/23 and 12/10/23 did not show a cause of your pain. The hip MRI did not show an acute cause. The lumbar spine MRI did not show a cause either. You were seen by the general surgeon who thought your pain was musculoskeletal with no surgical intervention needed at this time. You were also seen by the orthopedic surgeon who did not find a cause of your pain as well. We suspect you have a strained muscle. We recommend treatment with antiinflammatories and physical therapy. Please continue taking Tylenol 1000mg every 8 hours with the Flexeril 5mg three times a day as well. Please place a lidocaine patch in the painful area as well. Please take the prednisone which is an antiinflammatory as previously prescribed. Please also take the previously prescribed oxycodone at home as prescribed as needed for SEVERE pain only. Please keep close follow up with your primary care provider after discharge. You will possibly need follow up with physical therapy and pain management as well. Please do not hesitate to come back to the emergency room if your symptoms worsen or return. It was a pleasure taking care of you while you were here. Total Time Total Time Spent Total Time Spent (In Minutes): 65
--- NOTE | 2023-12-12 10:55 | Hospitalist Progress Note ---
Date of Service December 12, 2023 Assessment & Plan (1) Hip pain: (2) Ambulatory dysfunction: Plan: 58-year-old female with hypertension, obesity, prediabetes, history of DVT presenting with progressive severe hip pain for a few days. Severe, intractable hip pain Back pain Possible severe arthritis, rule out disc herniation, ligamentous tear Pt with CT abd/pelvis x 2 in chart from Dec 08 and Dec 09 with no noted cause of her pain Hip MRI unremarkable Lumbar spine MRI with "no evidence of cord compression or significant neuroforaminal narrowing." Pain control with scheduled Tylenol 1 g 3 times daily, oxycodone 5 mg p.o. as needed, Dilaudid 0.5 mg IV every 4 hours as needed, Toradol 30 mg IV every 6 hours as needed, Flexeril 5 mg twice daily, Lidoderm patch, ice pack PT OT evaluation Pain Management consulted, appreciate recs Orthopedics consulted appreciate recs -recommended General Surgery eval for possible abdominal source General surgery consulted, appreciate recs Continue pain control Right axillary lymphadenopathy Being managed by PCP Had a recent mammogram, ultrasound Close follow-up with PCP Hypertension Continue lisinopril/hydrochlorothiazide Current smoker Nicotine patch daily Obesity Counseling History of DVT Takes aspirin 325 mg daily While admitted, aspirin 81 mg daily and Lovenox 40 mg SC every 12 hours Diet: HH DVT prophylaxis: Lovenox SQ Dispo: pT/OT ordered for further recs. Recommending return home Admission and Anticipated Discharge Date Admission Date: December 10, 2023 Physical Exam Physical Exam: General: Alert, oriented. No acute distress Skin: No noted rashes or bruises Psych: Tearful mood and affect HEENT: NC/AT CV: RRR Resp: Breath sounds clear bilaterally, no increased effort of breathing. Abdomen: Soft, nontender, nondistended. No guarding. Noted periumbilical firmness Extremities: No edema in lower extremities bilaterally. Results & Data Results & Data Vital Signs (Past 12 Hours) Vital Signs Temp Pulse Resp BP Pulse Ox O2 Del Method 12/12/23 07:38 36.8 C 77 16 130/82 93 Room Air
== END 2023-12-12 12:45 | disposition home or self-care (01) | DRG 392 ==
LOC: ED 07:04 → SUATTDRO 12:06 → EDINP 12:06 → INTOOBSV 12:06 → 3W 13:55